=== PATIENT | female | born 1940 | race Caucasian/White ===

== ENCOUNTER 2022-01-02 10:57 | Day surgery (SDC) | payer MEDICARE, BC ==
[~2022-01-02] VITALS: Ht 162.6 cm; Wt 73.5 kg
[2022-01-02] VITALS (10 sets, daily range): BP systolic 117–146; BP diastolic 59–73
[2022-01-02] MEDS ORDERED: LORazepam 0.5 MG tablet PO PRN (11:20)
[2022-01-02] MEDS ORDERED: diphenhydrAMINE 25mg capsule PO PRN (11:20)
[2022-01-02] MEDS ORDERED: normal saline 1,000 ML IV SCH (11:20)
[2022-01-02] MEDS ORDERED: methylPREDNISolone sod succ 125mg/2ml vial IV ONE (11:20)
[2022-01-02] MEDS ORDERED: nitroGLYCERIN 0.4mg SUBLingual tab SL PRN (11:20)
[2022-01-02] MEDS ORDERED: MULT-1085 PO (11:29)
[2022-01-02] MEDS ORDERED: LACT1CAP65 PO (11:29)
[2022-01-02] MEDS ORDERED: midazolam 1 mg/ML 2ml injection ONE (14:22)
[2022-01-02] MEDS ORDERED: iohexol 350MG/ML 100ml bottle IV ONE (14:22)
[2022-01-02] MEDS ORDERED: fentaNYL/PF 50MCG/1 ML 2ML syringe ONE (14:22)
[2022-01-02] MEDS ORDERED: LIDOcaine 1% 30ml preserv. free vial ONE (14:22)
[2022-01-02] MEDS ORDERED: HYDROcodone/acetaminophen 5mg/325mg tablet PO PRN (16:00)
[2022-01-02] MEDS ORDERED: proCHLORperazine 10 MG/2 ml inj IV PRN (16:00)
[2022-01-02] MEDS ORDERED: normal saline 1000ml 1,000 ML IV SCH (16:00)
[2022-01-02] MEDS ORDERED: ondansetron/PF 4mg/2ml inj IV PRN (16:00)
[2022-01-02] MEDS ORDERED: HYDROcodone/acetaminophen 10/325mg tab PO PRN (16:00)
[2022-01-02] MEDS ORDERED: OXAZEpam 15mg capsule PO PRN (16:00)
== END 2022-01-02 20:00 | disposition home or self-care (01) ==
LOC: SSTAY O 10:57
PROVIDERS: ATTEND Internal Medicine Cardiovascular Disease
DX: R94.39 Abnormal result of other cardiovascular function study (principal); I25.10 Atherosclerotic heart disease of native coronary artery without angina pectoris; Z91.041 Radiographic dye allergy status; E78.5 Hyperlipidemia, unspecified; Z79.899 Other long term (current) drug therapy
CPT/HCPCS: 36415; 83880; 93005; 93458; 99152; C1760; C1769; J1644; J2250; J2930; J3010; J3490; J7030; Q0163; Q9967; 99153; A4620; A6258

== ENCOUNTER 2023-12-22 07:31 | Day surgery (SDC) | payer MEDICARE, BC ==
[2023-12-16 11:47] LABS: BASOPHILS # (AUTO) 0.1 X10'3 (0-0.2); BASOPHILS % (AUTO) 0.8 % (0-1); EOSINOPHILS # (AUTO) 0.2 X10'3 (0-0.9); EOSINOPHILS % (AUTO) 2.9 % (0-6); LYMPHOCYTES # (AUTO) 2.1 X10'3 (1.1-4.8); LYMPHOCYTES % (AUTO) 24.5 % (21-51); MEAN CORPUSCULAR HEMOGLOBIN 30.1 PG (27.0-31.0); MEAN CORPUSCULAR HGB CONC 33.4 g/dL (33.0-36.5); MEAN CORPUSCULAR VOLUME 90.1 FL (78-98); MEAN PLATELET VOLUME 7.5 FL (7.4-10.4); MONOCYTES # (AUTO) 0.6 X10'3 (0-0.9); MONOCYTES % (AUTO) 7.1 % (2-12); NEUTROPHILS # (AUTO) 5.4 X10'3 (1.8-7.7); NEUTROPHILS % (AUTO) 64.7 % (42-75); PRE OP HEMATOCRIT 44.5 % (35.0-45.0); PRE OP HEMOGLOBIN 14.9 g/dL (12.0-16.0); PRE OP PLATELET COUNT 303 X10'3 (140-440); PRE OP WHITE BLOOD COUNT 8.4 10'3 (4.8-10.8); RED BLOOD COUNT 4.94 X10'6 (4.20-5.60); RED CELL DISTRIBUTION WIDTH 13.8 % (11.5-14.5)
[2023-12-16 11:58] LABS: ALBUMIN 3.8 G/DL (3.4-5.0); ALBUMIN/GLOBULIN RATIO 1.2 (1.1-1.5); ALKALINE PHOSPHATASE 90 IU/L (46-116); BLOOD UREA NITROGEN 19 MG/DL (7-18); BUN/CREATININE RATIO 19.4 (10.0-20.0); CALCIUM 9.2 MG/DL (8.5-10.1); CHLORIDE 106 MMOL/L (99-107); CREATININE 0.98 MG/DL (0.40-0.90); PRE OP ALT 12 U/L (30-65); PRE OP ANION GAP 6 (8-16); PRE OP AST 16 U/L (10-37); PRE OP BILIRUB, TOTAL 0.6 MG/DL (0.0-1.0); PRE OP GLUCOSE 107 MG/DL (70-104); PRE OP POTASSIUM 4.1 MMOL/L (3.4-5.1); PRE OP SODIUM 142 MMOL/L (135-145); TOTAL CARBON DIOXIDE 29.9 MMOL/L (24-32); TOTAL PROTEIN 6.9 G/DL (6.4-8.2); eGFR 54 ML/MIN
[2023-12-22] VITALS (11 sets, daily range): BP systolic 131–141; BP diastolic 66–80; PULSE 76–89; RESP 12–23; TEMP 98; O2SAT 94–99
[~2023-12-22] VITALS: Ht 165.1 cm; Wt 71.1 kg
[~2023-12-22 07:31] MED LIST: MAGN400C PO; MULT-1085 PO; UBID200C18 PO; VITE400C PO
[2023-12-22] MEDS ORDERED: LIDOcaine 1% (10mg/ml)w/preservative inj. 20ml MDV ONE (07:49)
[2023-12-22] MEDS ORDERED: BUPIVAcaine/PF 2.5mg/ml (0.25%) 10ml vial ONE (07:49)
[2023-12-22] MEDS: famotidine 20mg tablet PO ONE (09:20)
[2023-12-22] MEDS: cefazolin 2gm/D5W 100mL 100 ML IV ONE (09:21)
[2023-12-22] MEDS: ringers solution, lacted 1,000 ML IV SCH (09:21)
[2023-12-22] MEDS ORDERED: propofol inj 20 ML IV ONE (10:15)
[2023-12-22] MEDS ORDERED: sevoflurane 250ml liquid IH ONE (10:15)
[2023-12-22] MEDS ORDERED: dexamethasone sod phosphate 4mg/ml inj. ONE (10:16)
[2023-12-22] MEDS ORDERED: LIDOcaine 2% (20mg/ml) 5ml vial ONE (10:16)
[2023-12-22] MEDS: BUPIVAcaine 2.5mg/ml inj 50ml vial (contains preservative) SQ ONE (10:34)
[2023-12-22] MEDS ORDERED: morphine 4 MG/ML inj SYRINge IV PRN (10:55)
[2023-12-22] MEDS ORDERED: ondansetron/PF 4mg/2ml inj IV PRN (10:55)
[2023-12-22] MEDS ORDERED: ringers solution, lacted 1,000 ML IV SCH (10:55)
[2023-12-22] MEDS ORDERED: proCHLORperazine 10 MG/2 ml inj IV PRN (10:55)
[2023-12-22] MEDS ORDERED: morphine 2 MG/ML inj. syringe IV PRN (10:55)
[2023-12-22] MEDS ORDERED: labetalol 20mg/4ml (5mg/ml) syringe IV PRN (10:55)
[2023-12-22] MEDS ORDERED: enalaprilat dihydrate 2.5mg/2ml vial IV PRN (10:55)
== END 2023-12-22 11:15 | disposition home or self-care (01) ==
LOC: PAS 07:31
PROVIDERS: ATTEND Orthopaedic Surgery Hand Surgery
DX: G56.01 Carpal tunnel syndrome, right upper limb (principal); J45.909 Unspecified asthma, uncomplicated; Z79.899 Other long term (current) drug therapy; Z90.49 Acquired absence of other specified parts of digestive tract; Z90.710 Acquired absence of both cervix and uterus; Z98.49 Cataract extraction status, unspecified eye; Z98.890 Other specified postprocedural states; Z88.8 Allergy status to other drugs, medicaments and biological substances
CPT/HCPCS: 36415; 64721; 80053; 82948; 85025; 93005; A4215; A4618; A6449; J0690; J1100; J2001; J2405; J2704; J3490; J7030; J7120; Z7506; Z7512

== ENCOUNTER 2024-11-15 06:52 | Day surgery (SDC) | payer MEDICARE, BC ==
[~2024-11-15] VITALS: Ht 165.1 cm; Wt 70.9 kg
[2024-11-15] MEDS: scopolamine 1MG/72H patch 1 PATCH PATCH.TD.3 TD SCH (05:30)
[2024-11-15] MEDS: ceFAZolin 2gm/dext,iso 50mL 50 ML IV ONE (05:30)
[~2024-11-15 06:52] MED LIST changes: -MULT-1085 PO; +VIT1TAB.13 PO; -VITE400C PO
[2024-11-15 07:00] VITALS: BP 146/94; PULSE 79; RESP 16; TEMP 98.3; O2SAT 98
--- NOTE | 2024-11-15 07:27 | ELECTROCARDIOGRAPH REPORT ---
[facility] Test Date: 2024-11-15 Test Time: 07:21:45 Pat Name: NOHEMY RODRIGUEZ Department: [facility] Patient ID: [facility]-[id number] Room: Gender: F Hospice Care Consultant: KELLY : 1940 Requested By: TROY LEO Order Number: [id number] Reading MD: Dr. RADHA Mcmahon Measurements Intervals [place] Rate: 75 P: 69 WV: 126 QRS: -67 QRSD: 100 T: 40 QT: 424 QTc: 474 Interpretive Statements Sinus rhythm Left anterior fascicular block Consider right ventricular hypertrophy Baseline wander in lead(s) II,III,aVF Electronically Signed On 11-15-2024 11:17:[address] RADHA Mcmahon Please click the below link to view image of tracing.
[2024-11-15] MEDS ORDERED: BUPIVAcaine/PF 2.5mg/ml (0.25%) 10ml vial ONE (07:55)
[2024-11-15] MEDS: aprepitant 40mg capsule PO ONE (07:56)
[2024-11-15] MEDS ORDERED: LIDOcaine 2% (20mg/ml) 5ml vial ONE (07:56)
[2024-11-15 08:10] LABS: MEAN PLATELET VOLUME 7.7 FL (7.4-10.4); PRE OP HEMATOCRIT 44.0 % (35.0-45.0); PRE OP HEMOGLOBIN 14.8 g/dL (12.0-16.0); PRE OP PLATELET COUNT 314 X10'3 (140-440); PRE OP WHITE BLOOD COUNT 7.7 10'3 (4.8-10.8); RED CELL DISTRIBUTION WIDTH 14.2 % (11.5-14.5)
[2024-11-15] MEDS ORDERED: ondansetron/PF 4mg/2ml inj IV PRN (08:20)
[2024-11-15] MEDS ORDERED: ringers solution, lacted 1,000 ML IV SCH (08:20)
[2024-11-15] MEDS ORDERED: labetalol 20mg/4ml (5mg/ml) syringe IV PRN (08:20)
[2024-11-15] MEDS ORDERED: HYDROmorphone/PF 0.2 MG/ML SYRINGE IV PRN ×2 (08:20)
[2024-11-15] MEDS ORDERED: morphine 4 MG/ML inj SYRINge IV PRN (08:20)
[2024-11-15 08:29] LABS: CREATININE 0.99 MG/DL (0.40-0.90); PRE OP ALT 25 U/L (30-65); PRE OP ANION GAP 8 (8-16); PRE OP AST 20 U/L (10-37); PRE OP BILIRUB, TOTAL 0.6 MG/DL (0.0-1.0); PRE OP GLUCOSE 111 MG/DL (70-104); PRE OP POTASSIUM 3.8 MMOL/L (3.4-5.1); PRE OP SODIUM 143 MMOL/L (135-145); TOTAL CARBON DIOXIDE 27.3 MMOL/L (24-32); eCRCL 38 ML/MIN; eGFR 53 ML/MIN
[2024-11-15] MEDS ORDERED: propofol inj 20 ML IV ONE (09:00)
[2024-11-15] MEDS ORDERED: fentaNYL/PF 50MCG/1 ML 2ML syringe ONE (09:01)
[2024-11-15] MEDS ORDERED: midazolam 1 mg/ML 2ml injection ONE (09:01)
[2024-11-15 09:19] VITALS: BP 111/64; PULSE 72; RESP 16; O2SAT 97
--- NOTE | 2024-11-15 09:20 | OPERATIVE REPORT ---
Operative Report Providers to ~ Date of Procedure: Nov 15, 2024 Pre-Operative Diagnosis: Right ring trigger finger and Dupuytren's contracture Post-Operative Diagnosis SAME as PRE-Op Procedure Performed Incision the tendon sheath right ring finger and excision of palmar fascia right palm Surgeon: Peter Renteria MD Console Attendant None Anesthesiologist: Ab Chi Type of Anesthesia: Regional Findings: Estimated Blood Loss: None Specimen Removed: None Description of Procedure: The patient is an 84-year-old woman with ring trigger finger as well as progressing Dupuytren's contracture in the palm. Surgery is indicated to relieve symptoms. Risks and benefits were discussed with the patient. Some of the risks include but not limited to infection, bleeding, nerve or vessel damage, and recurrence. She agreed to proceed. She was brought to the operating room where the arm was prepped and draped in usual manner. Local anesthetic was infiltrated proximal to the planned incision sites. Tourniquet was elevated on the forearm. Incision was made starting at the base of the ring finger extending proximally and then zigzagging proximal to the distal palm crease. A 2nd incision was made over the thumb webspace. Starting with the thumb webspace palmar contracture and that area was identified and the subcutaneous tissues and excised. On the ring finger the dissection was taken 1st to the trigger finger where the A1 dexter was identified and incised in the midline. Proximal to that the thickened palmar fascia was excised off of vital structures without incident. Thorough irrigation was done followed by cauterization. Both incisions were then closed using Prolene suture. A sterile dressing was then applied and the tourniquet was released. The hand perfused well and she was taken to the recovery room in stable condition. PETER RENTERIA Jr., MD Nov 15, 2024 09:20
[2024-11-15 09:30] VITALS: BP 117/66; PULSE 74; O2SAT 93
[2024-11-15 09:40] VITALS: BP 119/66; PULSE 74; RESP 15; O2SAT 94
[2024-11-15 09:50] VITALS: BP 117/65; PULSE 75; RESP 14; O2SAT 96
[2024-11-15 09:59] VITALS: BP 116/72; PULSE 74; RESP 15; O2SAT 96
== END 2024-11-15 09:59 | disposition home or self-care (01) ==
LOC: PAS 06:52
PROVIDERS: ATTEND Orthopaedic Surgery Hand Surgery
DX: M65.341 Trigger finger, right ring finger (principal); M72.0 Palmar fascial fibromatosis [Dupuytren]; I10 Essential (primary) hypertension; I73.9 Peripheral vascular disease, unspecified; M19.90 Unspecified osteoarthritis, unspecified site; Z79.899 Other long term (current) drug therapy; Z90.710 Acquired absence of both cervix and uterus; Z90.49 Acquired absence of other specified parts of digestive tract; Z98.890 Other specified postprocedural states; Z88.8 Allergy status to other drugs, medicaments and biological substances; Z82.49 Family history of ischemic heart disease and other diseases of the circulatory system; Z83.3 Family history of diabetes mellitus; M16.0 Bilateral primary osteoarthritis of hip
CPT/HCPCS: 26055; 26121; 36415; 80053; 85025; 93005; A4215; A6449; J2003; J2250; J2704; J3010; J7030; J7040; J7120; Z7506; Z7512; Z7610; J3490